=== PATIENT | male | born 1970 | race Caucasian/White ===

== ENCOUNTER 2018-02-16 18:54 | Emergency (ER) | payer MEDICAID ==
--- NOTE | 2018-02-16 19:38 | EDM.PDOC ---
ED HPI GENERAL MEDICAL PROBLEM - General Chief Complaint: Lower Extremity Injury/Pain Stated Complaint: LEFT FOOT PAIN, BROKE FOOT IN OCT Time Seen by Provider: 02/16/18 19:15 Source of Information: Reports: Patient History Limitations: Reports: No Limitations - History of Present Illness INITIAL COMMENTS - FREE TEXT/NARRATIVE: 47-year-old male who had surgery for what sounds like a fracture on the left foot December 22, was just given the green light to remove the walking boot recently and today he was ambulating without the boot when he turned his foot slightly and he thought he felt a crack and now has more pain. It looks fine. He just wants to make sure he didn't damage the surgery. It is still more sore than it was prior to the reinjury. No other complaints. Location: Reports: Lower Extremity, Left Worsens with: Reports: Other (Weightbearing) Left Feet Pain Score (Numeric/FACES): 4 - Related Data Allergies Allergy/AdvReac Type Severity Reaction Status Date / Time codeine Allergy Airway Verified 08/06/14 23:39 Tightness Home Meds: Home Meds Albuterol Sulfate [Proair Hfa] 1 - 2 puff IH Q4H PRN 08/06/14 [History] Albuterol [Proventil Neb Soln] 1 ampule IH TID PRN 08/06/14 [History] Canagliflozin [Invokana] 300 mg PO DAILY 08/06/14 [History] Doxazosin Mesylate [Cardura] 8 mg PO BEDTIME 08/06/14 [History] Hydrochlorothiazide 25 mg PO BEDTIME 08/06/14 [History] Insulin Aspart [NovoLOG] 150 units SQ BID 08/06/14 [History] Insulin Glarg,Human.Rec.Analog [Lantus Solostar] 100 unit SQ QPM 08/06/14 [ History] Lisinopril 40 mg PO DAILY 08/06/14 [History] Simvastatin 20 mg PO BEDTIME 08/06/14 [History] Varenicline [Chantix Dose Pack] 1 dose PO DAILY 08/06/14 [History] amLODIPine Besylate [Amlodipine Besylate] 10 mg PO DAILY 08/06/14 [History] predniSONE [Prednisone] 20 mg PO DAILY 08/06/14 [History] sitaGLIPtin Phos/Metformin HCl [Janumet 50-1,000 MG] 1 tab PO BID 08/06/14 [ History] Past Medical History HEENT History: Reports: Impaired Vision Cardiovascular History: Reports: Hypertension, Stents Respiratory History: Reports: Asthma, COPD, Sleep Apnea Neurological History: Reports: Head Trauma Psychiatric History: Reports: Anxiety, Depression Endocrine/Metabolic History: Reports: Diabetes, Type II - Infectious Disease History Infectious Disease History: Reports: Chicken Pox, Shingles - Past Surgical History Cardiovascular Surgical History: Reports: Coronary Artery Stent Musculoskeletal Surgical History: Reports: Other (See Below) Other Musculoskeletal Surgeries/Procedures:: left foot surgery Social & Family History - Tobacco Use Smoking Status *Q: Current Every Day Smoker Years of Tobacco use: 38 Packs/Tins Daily: 0.5 - Caffeine Use Caffeine Use: Reports: Soda - Recreational Drug Use Recreational Drug Use: Yes Drug Use in Last 12 Months: Yes Recreational Drug Type: Reports: Marijuana/Hashish Recreational Drug Use Frequency: Weekly Review of Systems - Review of Systems Review Of Systems: See Below Constitutional: Denies: Fever Respiratory: Denies: Shortness of Breath GI/Abdominal: Denies: Nausea, Vomiting Skin: Denies: Erythema (The wound itself is healing well, no erythema or swelling, no draining) Neurological: Denies: Paresthesia ED EXAM, GENERAL - Physical Exam Exam: See Below Exam Limited By: No Limitations General Appearance: Alert, No Apparent Distress Respiratory/Chest: No Respiratory Distress Extremities: Other (Exam is otherwise limited to the left foot. There is a well- healed surgical scar over the lateral foot near the base of the fifth metatarsal. There is no deformity but there is moderate tenderness to palpation , no crepitus) Neurological: Alert, Oriented Course - Vital Signs Last Recorded V/S: Last Vital Signs Temp 95.7 F 02/16/18 19:06 Pulse 93 02/16/18 19:06 Resp 18 02/16/18 19:06 BP 163/79 H 02/16/18 19:06 Pulse Ox 92 L 02/16/18 19:06 - Orders/Labs/Meds Orders: Active Orders 24 hr Category Date Time Status Foot Comp Min 3V Lt [CR] Stat Exams 02/16/18 19:15 Taken - Re-Assessments/Exams Free Text/Narrative Re-Assessment/Exam: 02/16/18 19:31 An x-ray of the left foot was obtained. 02/16/18 20:48 There was a slight opening of the fracture site of the fifth metatarsal on the x -ray, the edges of the bone appeared to be sclerosed and nonacute. I discussed this with the [facility] physician who compared a foot x-ray from a week ago and it sounds very similar. The patient was reassured and can recheck with orthopedics over the next several days if pain continues or he has other concerns. I think it's okay to increase activity as tolerated. Departure - Departure Time of Disposition: 19:45 Disposition: Home, Self-Care 01 Condition: Good Clinical Impression: Acute postoperative pain of left foot - Discharge Information Instructions: Foot Pain Referrals: Marii Hyman [employer] [Primary Care Provider] - Forms: ED Department Discharge Care Plan Goals: Avoid direct weightbearing until further instructions and advice from orthopedics. Recheck in the next 2-3 days if concerns. - My Orders Last 24 Hours: My Active Orders 02/16/18 19:15 Foot Comp Min 3V Lt [CR] Stat - Assessment/Plan Last 24 Hours: My Active Orders 02/16/18 19:15 Foot Comp Min 3V Lt [CR] Stat
--- NOTE | 2018-02-17 08:45 | CR ---
Foot Comp Min 3V Lt INDICATION: post op injury FINDINGS: Postoperative changes threaded screw fixation across the left fifth metatarsal. Hardware ap pears intact. Calcaneal spurs. Degenerative changes in the midfoot and MTP joint. Accessory navicular .
== END 2018-02-16 19:46 | disposition home or self-care (01) ==
LOC: JP.ED 18:54
DX: G89.18 Other acute postprocedural pain (principal); M79.672 Pain in left foot; J44.9 Chronic obstructive pulmonary disease, unspecified; E11.9 Type 2 diabetes mellitus without complications; F17.210 Nicotine dependence, cigarettes, uncomplicated; Z79.4 Long term (current) use of insulin; Z79.899 Other long term (current) drug therapy; Z88.5 Allergy status to narcotic agent; Z98.890 Other specified postprocedural states
CPT/HCPCS: 73630-26-LT; 73630-LT; 99284

== ENCOUNTER 2021-08-26 11:20 | Emergency (ER) | payer MEDICAID | END 2021-08-26 11:44 | disposition left against medical advice (07) | LOC: JP.ED 11:20 | DX: Z53.21 Procedure and treatment not carried out due to patient leaving prior to being seen by health care provider (principal) ==

== ENCOUNTER 2021-10-11 03:03 | Emergency (ER) | payer MEDICAID ==
[2021-10-11 04:19] LABS: CORONAVIRUS COVID-19 NAA NEGATIVE (NEGATIVE)
[2021-10-11] MEDS ORDERED: Levofloxacin 250 MG Tab PO ONE (04:28)
== END 2021-10-11 04:51 | disposition home or self-care (01) ==
LOC: JP.ED 03:03
DX: J44.0 Chronic obstructive pulmonary disease with (acute) lower respiratory infection (principal); J18.9 Pneumonia, unspecified organism; E66.2 Morbid (severe) obesity with alveolar hypoventilation; I10 Essential (primary) hypertension; E11.9 Type 2 diabetes mellitus without complications; Z68.44 Body mass index [BMI] 60.0-69.9, adult; Z88.8 Allergy status to other drugs, medicaments and biological substances; Z88.5 Allergy status to narcotic agent; Z91.013 Allergy to seafood; Z79.4 Long term (current) use of insulin; Z79.899 Other long term (current) drug therapy; Z20.822 Contact with and (suspected) exposure to COVID-19
CPT/HCPCS: 0241U; 36415; 36600; 71045; 80053; 82009; 82803; 85025; 99285; A9270

== ENCOUNTER 2021-10-17 08:05 | Emergency (ER) | payer MEDICAID | END 2021-10-17 13:28 | disposition home or self-care (01) | LOC: JP.ED 08:05 | DX: S80.01XA Contusion of right knee, initial encounter (principal); M17.11 Unilateral primary osteoarthritis, right knee; J44.9 Chronic obstructive pulmonary disease, unspecified; E11.9 Type 2 diabetes mellitus without complications; I10 Essential (primary) hypertension; Z88.5 Allergy status to narcotic agent; Z91.013 Allergy to seafood; Z79.899 Other long term (current) drug therapy; Z79.4 Long term (current) use of insulin; W22.09XA Striking against other stationary object, initial encounter | CPT/HCPCS: 36415; 73562-26-RT; 73562-RT; 73610-26-RT; 73610-RT; 80053; 82947; 83605; 85025; 99284-25 ==

== ENCOUNTER 2021-10-21 08:55 | Inpatient (IN) | payer MEDICAID ==
[2021-10-21] MEDS ORDERED: Metoclopramide 10 MG/2 ML SDV IVPUSH ONE (09:03)
[2021-10-21] MEDS ORDERED: Famotidine 20 MG/2 ML SDV IVPUSH ONE (09:03)
[2021-10-21] MEDS ORDERED: Aluminum Hydroxide/Magnesium Hydroxide/Simethicone Susp 30 ML Cup PO STA (09:04)
[2021-10-21] MEDS ORDERED: Lactated Ringers 1,000 ML IV SCH ×2 (09:15→10:30)
[2021-10-21] MEDS ORDERED: Pantoprazole 40 MG Vial IVPUSH SCH (09:15)
[2021-10-21 10:16] LABS: CORONAVIRUS COVID-19 NAA NEGATIVE (NEGATIVE)
[2021-10-21] MEDS ORDERED: Pantoprazole 80 MG in Sodium Chloride 0.9% 100 ML IV SCH (11:00)
[2021-10-21] MEDS ORDERED: Albuterol 0.083% 2.5 MG/3 ML Neb Soln NEB PRN (13:40)
[2021-10-21] MEDS ORDERED: Ondansetron 4 MG/2 ML SDV IV PRN (13:40)
[2021-10-21] MEDS ORDERED: 50% Dextrose in Water 50 ML Syringe IV PRN (13:40)
[2021-10-21] MEDS ORDERED: Glucose Gel 15 GM in 37.5 GM Tube PO PRN (13:40)
[2021-10-21] MEDS ORDERED: Sodium Chloride 0.9% 10 ML Syringe FLUSH PRN (13:40)
[2021-10-21] MEDS: Insulin Lispro 100 Unit/ML 3 ML KwikPen SUBCUT SCH ×3 (13:40→20:38)
[2021-10-21] MEDS ORDERED: Insulin Regular, Human 100 Units/ML 3 ML Vial SUBCUT PRN (14:01)
[2021-10-21] MEDS: oxyCODONE 5 MG Tab PO PRN ×2 (15:08→21:01)
[2021-10-21] MEDS: Nicotine 14 MG/24 Hr Patch TRDERM SCH (15:09)
[2021-10-21] MEDS: Sodium Chloride 0.9% 1,000 ML IV SCH (16:12)
[2021-10-21] MEDS: atorvaSTATin 20 MG Tab PO SCH (20:24)
[2021-10-21] MEDS: Carvedilol 12.5 MG Tab PO SCH (20:25)
[2021-10-21] MEDS: Amitriptyline 25 MG Tab PO SCH (20:26)
[2021-10-21] MEDS: Pantoprazole 80 MG in Sodium Chloride 0.9% 100 ML IV SCH (21:40)
[2021-10-22] MEDS: oxyCODONE 5 MG Tab PO PRN ×4 (00:49→16:41)
[2021-10-22] MEDS: Insulin Lispro 100 Unit/ML 3 ML KwikPen SUBCUT SCH ×4 (07:18→20:56)
[2021-10-22] MEDS: Pantoprazole 80 MG in Sodium Chloride 0.9% 100 ML IV SCH (07:20)
[2021-10-22] MEDS: Tiotropium Bromide 4 GM Inhalation Spray (2.5mcg/1 dose; 10 doses) INH SCH (07:25)
[2021-10-22] MEDS: Acetaminophen 325 MG Tab PO PRN ×2 (07:41→18:19)
[2021-10-22] MEDS ORDERED: Propofol 200 MG/20 ML SDV ONE (07:43)
[2021-10-22] MEDS ORDERED: Midazolam 1 MG/ML 2 ML SDV ONE (07:43)
[2021-10-22] MEDS ORDERED: fentaNYL 100 MCG/2 ML SDV ONE (07:43)
[2021-10-22] MEDS: Sodium Chloride 0.9% 1,000 ML IV SCH (08:07)
[2021-10-22] MEDS ORDERED: Insulin Regular, Human 100 Units/ML 3 ML Vial SUBCUT SCH (09:00)
[2021-10-22] MEDS: Nicotine 14 MG/24 Hr Patch TRDERM SCH (09:59)
[2021-10-22] MEDS: Lisinopril 20 MG Tab PO SCH (09:59)
[2021-10-22] MEDS: Carvedilol 12.5 MG Tab PO SCH ×2 (09:59→20:57)
[2021-10-22] MEDS: Liraglutide (rDNA Origin) 0.6 MG/0.1 ML 3 ML Pen SUBCUT SCH (10:04)
[2021-10-22] MEDS: Insulin Regular, Human 100 Units/ML 3 ML Vial SUBCUT SCH (10:30)
[2021-10-22] MEDS ORDERED: Polyethylene Glycol 3350 Powder 238 GM Bot PO ONE (14:00)
[2021-10-22] MEDS ORDERED: Bisacodyl 5 MG Tab PO ONE (14:00)
[2021-10-22] MEDS: Amitriptyline 25 MG Tab PO SCH (20:56)
[2021-10-22] MEDS: atorvaSTATin 20 MG Tab PO SCH (20:57)
[2021-10-23] MEDS: Tiotropium Bromide 4 GM Inhalation Spray (2.5mcg/1 dose; 10 doses) INH SCH (07:01)
[2021-10-23] MEDS: Insulin Lispro 100 Unit/ML 3 ML KwikPen SUBCUT SCH ×4 (08:04→21:11)
[2021-10-23] MEDS: Carvedilol 12.5 MG Tab PO SCH ×2 (08:10→21:12)
[2021-10-23] MEDS: Lisinopril 20 MG Tab PO SCH (08:12)
[2021-10-23] MEDS: Nicotine 14 MG/24 Hr Patch TRDERM SCH (08:14)
[2021-10-23] MEDS: Liraglutide (rDNA Origin) 0.6 MG/0.1 ML 3 ML Pen SUBCUT SCH (08:21)
[2021-10-23] MEDS: Insulin Regular, Human 100 Units/ML 3 ML Vial SUBCUT SCH (08:34)
[2021-10-23] MEDS: oxyCODONE 5 MG Tab PO PRN ×3 (08:51→21:21)
[2021-10-23] MEDS ORDERED: Bumetanide 1 MG/4 ML MDV IVPUSH ONE (09:40)
[2021-10-23] MEDS ORDERED: Sodium Chloride 0.9% 10 ML Syringe FLUSH ONE (10:27)
[2021-10-23] MEDS ORDERED: Iopamidol 612 MG/ML 100 ML Bottle IV PRN (10:27)
[2021-10-23] MEDS ORDERED: Sodium Chloride 0.9% 75 ML IV SCH (10:30)
[2021-10-23] MEDS: Diclofenac Sodium 1% Gel 100 GM Tube TOP SCH ×3 (11:07→21:22)
[2021-10-23] MEDS: [UNRECOGNIZED DRUG - OTHER] IARTIC ONE (16:36)
[2021-10-23] MEDS: Amitriptyline 25 MG Tab PO SCH (21:12)
[2021-10-23] MEDS: atorvaSTATin 20 MG Tab PO SCH (21:14)
[2021-10-24] MEDS: oxyCODONE 5 MG Tab PO PRN ×3 (02:56→20:10)
[2021-10-24] MEDS: Diclofenac Sodium 1% Gel 100 GM Tube TOP SCH ×4 (06:00→21:02)
[2021-10-24] MEDS: Tiotropium Bromide 4 GM Inhalation Spray (2.5mcg/1 dose; 10 doses) INH SCH (07:02)
[2021-10-24] MEDS: Insulin Lispro 100 Unit/ML 3 ML KwikPen SUBCUT SCH ×4 (08:18→20:04)
[2021-10-24] MEDS: Liraglutide (rDNA Origin) 0.6 MG/0.1 ML 3 ML Pen SUBCUT SCH (08:21)
[2021-10-24] MEDS: Nicotine 14 MG/24 Hr Patch TRDERM SCH (09:47)
[2021-10-24] MEDS: Lisinopril 20 MG Tab PO SCH (09:48)
[2021-10-24] MEDS: Carvedilol 12.5 MG Tab PO SCH ×2 (09:53→20:00)
[2021-10-24] MEDS: Insulin Regular, Human 100 Units/ML 3 ML Vial SUBCUT SCH (09:56)
[2021-10-24] MEDS ORDERED: Bisacodyl 5 MG Tab PO ONE ×2 (12:00→20:24)
[2021-10-24] MEDS ORDERED: Polyethylene Glycol 3350 Powder 238 GM Bot PO ONE (13:00)
[2021-10-24] MEDS: [UNRECOGNIZED DRUG - OTHER] IARTIC ONE (16:12)
[2021-10-24] MEDS: atorvaSTATin 20 MG Tab PO SCH (20:05)
[2021-10-24] MEDS: Amitriptyline 25 MG Tab PO SCH (20:05)
[2021-10-24] MEDS ORDERED: Polyethylene Glycol 3350 Powder 119 GM Bottle PO ONE (20:23)
[2021-10-24] MEDS ORDERED: Polyethylene Glycol 3350 Powder 238 GM Bot ONE (20:50)
[2021-10-25] MEDS: Diclofenac Sodium 1% Gel 100 GM Tube TOP SCH ×4 (06:20→21:56)
[2021-10-25] MEDS: Tiotropium Bromide 4 GM Inhalation Spray (2.5mcg/1 dose; 10 doses) INH SCH (07:20)
[2021-10-25] MEDS ORDERED: Propofol 200 MG/20 ML SDV ONE (08:06)
[2021-10-25] MEDS ORDERED: fentaNYL 100 MCG/2 ML SDV ONE (08:06)
[2021-10-25] MEDS ORDERED: Midazolam 1 MG/ML 2 ML SDV ONE (08:06)
[2021-10-25] MEDS: Insulin Lispro 100 Unit/ML 3 ML KwikPen SUBCUT SCH ×4 (08:25→20:33)
[2021-10-25] MEDS: Nicotine 14 MG/24 Hr Patch TRDERM SCH (08:30)
[2021-10-25] MEDS: Insulin Regular, Human 100 Units/ML 3 ML Vial SUBCUT SCH (10:40)
[2021-10-25] MEDS: Liraglutide (rDNA Origin) 0.6 MG/0.1 ML 3 ML Pen SUBCUT SCH (10:41)
[2021-10-25] MEDS: Carvedilol 12.5 MG Tab PO SCH ×2 (10:47→20:34)
[2021-10-25] MEDS: Lisinopril 20 MG Tab PO SCH (10:48)
[2021-10-25] MEDS: oxyCODONE 5 MG Tab PO PRN ×3 (10:52→21:56)
[2021-10-25] MEDS: Meloxicam 7.5 MG Tab PO SCH (13:00)
[2021-10-25] MEDS: Amitriptyline 25 MG Tab PO SCH (20:35)
[2021-10-25] MEDS: atorvaSTATin 20 MG Tab PO SCH (20:35)
[2021-10-25] MEDS: Acetaminophen 325 MG Tab PO PRN (21:56)
[2021-10-26] MEDS: oxyCODONE 5 MG Tab PO PRN ×4 (04:23→23:31)
[2021-10-26] MEDS: Diclofenac Sodium 1% Gel 100 GM Tube TOP SCH ×4 (05:52→21:25)
[2021-10-26] MEDS: Tiotropium Bromide 4 GM Inhalation Spray (2.5mcg/1 dose; 10 doses) INH SCH (07:02)
[2021-10-26] MEDS: Insulin Regular, Human 100 Units/ML 3 ML Vial SUBCUT SCH ×2 (07:38→09:09)
[2021-10-26] MEDS: Insulin Lispro 100 Unit/ML 3 ML KwikPen SUBCUT SCH ×4 (07:38→21:23)
[2021-10-26] MEDS: Nicotine 14 MG/24 Hr Patch TRDERM SCH (09:00)
[2021-10-26] MEDS: Meloxicam 7.5 MG Tab PO SCH (09:00)
[2021-10-26] MEDS: Liraglutide (rDNA Origin) 0.6 MG/0.1 ML 3 ML Pen SUBCUT SCH (09:03)
[2021-10-26] MEDS: Carvedilol 12.5 MG Tab PO SCH ×2 (09:08→20:07)
[2021-10-26] MEDS: Lisinopril 20 MG Tab PO SCH (09:09)
[2021-10-26] MEDS ORDERED: Bumetanide 1 MG/4 ML MDV IVPUSH ONE (10:30)
[2021-10-26] MEDS ORDERED: predniSONE 20 MG Tab PO ONE (10:30)
[2021-10-26] MEDS ORDERED: 50% Dextrose in Water 50 ML Syringe IVPUSH PRN ×2 (15:21→17:05)
[2021-10-26] MEDS ORDERED: Insulin Lispro 100 Unit/ML 3 ML KwikPen SUBCUT ONE ×2 (15:21→17:05)
[2021-10-26] MEDS ORDERED: Glucagon,Human Recombinant 1 MG Vial IM PRN ×2 (15:21→17:05)
[2021-10-26] MEDS: Acetaminophen 325 MG Tab PO PRN ×2 (19:36→23:31)
[2021-10-26] MEDS: atorvaSTATin 20 MG Tab PO SCH (20:05)
[2021-10-26] MEDS: Amitriptyline 25 MG Tab PO SCH (20:06)
[2021-10-26] MEDS: Albuterol 8 GM Inhaler INH PRN (20:12)
[2021-10-26] MEDS ORDERED: Insulin Lispro 100 Units/ML 3 ML Vial SUBCUT ONE (21:30)
[2021-10-27] MEDS: Tiotropium Bromide 4 GM Inhalation Spray (2.5mcg/1 dose; 10 doses) INH SCH (07:24)
[2021-10-27] MEDS: Diclofenac Sodium 1% Gel 100 GM Tube TOP SCH ×3 (08:25→17:11)
[2021-10-27] MEDS: Insulin Lispro 100 Unit/ML 3 ML KwikPen SUBCUT SCH ×4 (08:26→21:20)
[2021-10-27] MEDS: predniSONE 20 MG Tab PO SCH (08:27)
[2021-10-27] MEDS: Carvedilol 12.5 MG Tab PO SCH ×2 (08:27→20:08)
[2021-10-27] MEDS: Nicotine 14 MG/24 Hr Patch TRDERM SCH (08:28)
[2021-10-27] MEDS: Insulin Regular, Human 100 Units/ML 3 ML Vial SUBCUT SCH (08:30)
[2021-10-27] MEDS: Meloxicam 7.5 MG Tab PO SCH (08:31)
[2021-10-27] MEDS: Liraglutide (rDNA Origin) 0.6 MG/0.1 ML 3 ML Pen SUBCUT SCH (08:31)
[2021-10-27] MEDS: Acetaminophen 325 MG Tab PO PRN ×2 (12:17→20:06)
[2021-10-27] MEDS: oxyCODONE 5 MG Tab PO PRN ×2 (12:18→20:07)
[2021-10-27] MEDS: Albuterol 8 GM Inhaler INH PRN ×3 (14:27→17:44)
[2021-10-27] MEDS ORDERED: Insulin Lispro 100 Unit/ML 3 ML KwikPen SUBCUT ONE ×2 (16:49→21:17)
[2021-10-27] MEDS ORDERED: Glucagon,Human Recombinant 1 MG Vial IM PRN (16:49)
[2021-10-27] MEDS ORDERED: 50% Dextrose in Water 50 ML Syringe IVPUSH PRN (16:49)
[2021-10-27] MEDS: atorvaSTATin 20 MG Tab PO SCH (20:07)
[2021-10-27] MEDS: Amitriptyline 25 MG Tab PO SCH (20:08)
[2021-10-28] MEDS: Acetaminophen 325 MG Tab PO PRN ×2 (00:17→04:07)
[2021-10-28] MEDS: oxyCODONE 5 MG Tab PO PRN ×2 (00:18→06:29)
[2021-10-28] MEDS: Diclofenac Sodium 1% Gel 100 GM Tube TOP SCH ×2 (00:24→08:13)
[2021-10-28] MEDS ORDERED: Calcium Carbonate 500 MG Tab.Chew PO PRN ×2 (03:00→10:39)
[2021-10-28] MEDS: Tiotropium Bromide 4 GM Inhalation Spray (2.5mcg/1 dose; 10 doses) INH SCH (07:25)
[2021-10-28] MEDS: Insulin Lispro 100 Unit/ML 3 ML KwikPen SUBCUT SCH (08:14)
[2021-10-28] MEDS: predniSONE 20 MG Tab PO SCH (08:20)
[2021-10-28] MEDS: Carvedilol 12.5 MG Tab PO SCH (08:20)
[2021-10-28] MEDS: Nicotine 14 MG/24 Hr Patch TRDERM SCH (08:25)
[2021-10-28] MEDS: Insulin Regular, Human 100 Units/ML 3 ML Vial SUBCUT SCH (08:28)
[2021-10-28] MEDS: Meloxicam 7.5 MG Tab PO SCH (08:30)
[2021-10-28] MEDS: Liraglutide (rDNA Origin) 0.6 MG/0.1 ML 3 ML Pen SUBCUT SCH (08:31)
[2021-10-28] MEDS ORDERED: Albuterol 8 GM Inhaler INH PRN (10:19)
[2021-10-28] MEDS ORDERED: oxyCODONE 5 MG Tab PO PRN (10:19)
[2021-10-28] MEDS ORDERED: Insulin Lispro 100 Unit/ML 3 ML KwikPen SUBCUT SCH (11:00)
[2021-10-28] MEDS ORDERED: Dimethicone 20%/Zinc Oxide 25% 56 GM Spray Bottle TOP PRN (12:23)
== END 2021-10-28 13:15 | disposition home health service (06) | DRG 378 ==
LOC: JP.ED 08:55 → JP.ICU 10:50 → UNDOADMIN 10:50 → UNDODISIN 10-28 09:41
PROVIDERS: ADMIT Hospitalist; ATTEND Hospitalist
PROC: 0DB98ZX Excision of Duodenum, Via Natural or Artificial Opening Endoscopic, Diagnostic (ICD-10-PCS; 2021-10-22)
PROC: 0DJD8ZZ Inspection of Lower Intestinal Tract, Via Natural or Artificial Opening Endoscopic (ICD-10-PCS; principal; 2021-10-25)
DX: K92.2 Gastrointestinal hemorrhage, unspecified (principal); D62 Acute posthemorrhagic anemia; Z68.43 Body mass index [BMI] 50.0-59.9, adult; J44.0 Chronic obstructive pulmonary disease with (acute) lower respiratory infection; M17.11 Unilateral primary osteoarthritis, right knee; E66.01 Morbid (severe) obesity due to excess calories; I25.10 Atherosclerotic heart disease of native coronary artery without angina pectoris; G47.33 Obstructive sleep apnea (adult) (pediatric); E11.65 Type 2 diabetes mellitus with hyperglycemia; H54.7 Unspecified visual loss; I10 Essential (primary) hypertension; F41.9 Anxiety disorder, unspecified; F32.A Depression, unspecified; F17.210 Nicotine dependence, cigarettes, uncomplicated; Z99.89 Dependence on other enabling machines and devices; Z79.4 Long term (current) use of insulin; Z79.899 Other long term (current) drug therapy; Z79.52 Long term (current) use of systemic steroids; Z88.5 Allergy status to narcotic agent; Z88.8 Allergy status to other drugs, medicaments and biological substances; Z91.013 Allergy to seafood; Z95.5 Presence of coronary angioplasty implant and graft; Z95.1 Presence of aortocoronary bypass graft; Z86.19 Personal history of other infectious and parasitic diseases; Z20.822 Contact with and (suspected) exposure to COVID-19
CPT/HCPCS: 0241U; 36415; 74177; 74177-26; 80048; 80053; 81001; 82947; 85018; 85025; 85027; 86850; 86900; 86901; 86920; 86922; 88305; 93971-26; 93971-RT; 94640; 96374; 96375; 97110-GP; 97116-GP; 97163-GP; 97530-GP; 99285; 99285-25; A9270-GY; C9113; J1815; J1815-GY; J2250; J2704; J2765; J3010; J3490; J7030; J7120; J7325; J7512; Q9967

== ENCOUNTER 2023-02-16 23:41 | Emergency (ER) | payer MEDICAID ==
[2023-02-16] MEDS ORDERED: Sodium Chloride 0.9% 10 ML Syringe FLUSH PRN (23:42)
[2023-02-16] MEDS ORDERED: methylPREDNISolone Sodium Succinate 125 MG/2 ML SDV IVPUSH ONE (23:44)
[2023-02-16] MEDS ORDERED: Albuterol/Ipratropium 3.0-0.5 MG/3 ML Neb Soln NEB ONE (23:44)
[2023-02-17 00:19] LABS: BASOPHILS ABSOLUTE AUTO 0.11 K/uL (0.00-0.10); EOSINOPHILS ABSOLUTE AUTO 0.29 K/uL (0.00-0.40); EOSINOPHILS PERCENT AUTO 2.5 % (0.0-5.4); HEMATOCRIT 45.3 % (38.4-49.7); HEMOGLOBIN 14.5 g/dL (12.9-16.9); IMMATURE GRAN ABSOLUTE AUTO 0.09 K/uL (0.00-0.23); IMMATURE GRAN PERCENT AUTO 0.8 % (0.0-0.7); LYMPHOCYTES ABSOLUTE AUTO 1.78 K/uL (0.8-3.3); LYMPHOCYTES PERCENT AUTO 15.4 % (11.4-47.7); MEAN CORPUSCULAR HEMOGLOBIN 30.6 pg (31.6-35.5); MEAN CORPUSCULAR VOLUME 95.6 fL (81.4-99.0); MONOCYTES ABSOLUTE AUTO 0.95 K/uL (0.20-0.90); MONOCYTES PERCENT AUTO 8.2 % (3.3-12.6); NEUTROPHILS ABSOLUTE AUTO 8.34 K/uL (1.0-7.6); NEUTROPHILS PERCENT AUTO 72.1 % (40.0-78.1); PLATELET COUNT,PLT 160 K/uL (130-375); RED BLOOD CELL COUNT 4.74 M/uL (4.14-5.76); WHITE BLOOD CELL COUNT,WBC 11.6 K/uL (3.2-11.0)
[2023-02-17 00:28] LABS: BASE EXCESS ARTERIAL 9.4 mm/L; BICARBONATE,ARTERIAL 38.3 mmol/L (22.0-26.0); METHEMOGLOBIN 0.7 %; O2 SATURATION ARTERIAL 91.3 % (95.0-98.0); OXYHEMOGLOBIN 84.3 %; PO2 ARTERIAL 65.7 mmHg (75.0-100.0); TOTAL HEMOGLOBIN 14.8 g/dL (13.5-18.0)
[2023-02-17 00:52] LABS: LACTIC ACID 0.9 mmol/L (0.4-2.0)
[2023-02-17 00:55] LABS: A/G RATIO 0.6 (1.2-2.2); ALANINE AMINOTRANSFERASE,ALT 26 U/L (12-78); ALBUMIN 3.1 g/dL (3.4-5.0); ALKALINE PHOSPHATASE 101 U/L (46-116); ASPARTATE AMNIOTRANSFERASE,AST 22 U/L (15-37); BILIRUBIN TOTAL 0.4 mg/dL (0.2-1.0); BLOOD UREA NITROGEN,BUN 23 mg/dL (7-18); CALCIUM 8.7 mg/dL (8.5-10.1); CARBON DIOXIDE,CO2 36 mmol/L (21-32); CHLORIDE,CL 98 mmol/L (100-108); CREATININE 0.7 mg/dL (0.8-1.3); ESTIMATED GFR 110 mL/min (>60); GLUCOSE RANDOM 110 mg/dL (74-106); POTASSIUM,K 3.8 mmol/L (3.6-5.2); PRO B-TYPE NATRIUR PEPT,BNPPRO 117 pg/mL (5-125); PROTEIN TOTAL,TP 8.3 g/dL (6.4-8.2); SODIUM,NA 139 mmol/L (140-148); TROPONIN I HIGH SENSITIVITY 14.5 pg/mL (<=60.3)
[2023-02-17 00:59] LABS: ANION GAP 8.8 mmol/L (5.0-14.0)
== END 2023-02-17 02:43 ==
LOC: JP.ED 23:41
DX: I11.0 Hypertensive heart disease with heart failure (principal); I50.9 Heart failure, unspecified; E11.59 Type 2 diabetes mellitus with other circulatory complications; J44.9 Chronic obstructive pulmonary disease, unspecified; E66.01 Morbid (severe) obesity due to excess calories; E11.9 Type 2 diabetes mellitus without complications; F17.210 Nicotine dependence, cigarettes, uncomplicated; Z88.5 Allergy status to narcotic agent; Z88.8 Allergy status to other drugs, medicaments and biological substances; Z91.013 Allergy to seafood; Z95.5 Presence of coronary angioplasty implant and graft; Z79.51 Long term (current) use of inhaled steroids; Z79.4 Long term (current) use of insulin; Z79.82 Long term (current) use of aspirin; Z79.899 Other long term (current) drug therapy; Z20.822 Contact with and (suspected) exposure to COVID-19; Z68.43 Body mass index [BMI] 50.0-59.9, adult
CPT/HCPCS: 36415; 36600; 71045; 80053; 82803; 83605; 83880; 84145; 84484; 85025; 87635; 93005; 94640; 96374; 99285; J2930; J3490; J7620; U0002

== ENCOUNTER 2024-04-16 11:55 | Emergency (ER) | payer MEDICAID ==
[2024-04-16] MEDS ORDERED: Bacitracin Oint 1 GM U/D Packet ONE (12:56)
[2024-04-16] MEDS ORDERED: Acetaminophen/HYDROcodone 325-10 MG Tab ONE (12:56)
[2024-04-16] MEDS: Bacitracin Oint 1 GM U/D Packet TOP ONE (13:00)
[2024-04-16] MEDS: Acetaminophen/HYDROcodone 325-10 MG Tab PO ONE (13:00)
== END 2024-04-16 13:25 | disposition home or self-care (01) ==
LOC: JP.ED 11:55
DX: T25.221A Burn of second degree of right foot, initial encounter (principal); J44.9 Chronic obstructive pulmonary disease, unspecified; X08.8XXA Exposure to other specified smoke, fire and flames, initial encounter; Y93.89 Activity, other specified
CPT/HCPCS: 16020; 99283; A9270

== ENCOUNTER 2024-04-18 11:15 | Emergency (ER) | payer MEDICAID ==
[2024-04-18] MEDS: HYDROmorphone 1 MG/ML Syringe IM ONE (11:37)
[2024-04-18] MEDS: Bacitracin Oint 1 GM U/D Packet TOP ONE (11:40)
[2024-04-18] MEDS: Lidocaine 1% 5 ML VIAL INJECT ONE (11:40)
[2024-04-18 12:00] LABS: BASOPHILS ABSOLUTE AUTO 0.07 K/uL (0.00-0.10); BASOPHILS PERCENT AUTO 0.6 % (0.1-1.3); EOSINOPHILS ABSOLUTE AUTO 0.12 K/uL (0.00-0.40); HEMATOCRIT 40.8 % (38.4-49.7); HEMOGLOBIN 12.8 g/dL (12.9-16.9); IMMATURE GRAN ABSOLUTE AUTO 0.06 K/uL (0.00-0.23); IMMATURE GRAN PERCENT AUTO 0.5 % (0.0-0.7); LYMPHOCYTES ABSOLUTE AUTO 1.23 K/uL (0.8-3.3); LYMPHOCYTES PERCENT AUTO 10.2 % (11.4-47.7); MEAN CORPUSCULAR HEMOGLOBIN 31.2 pg (31.6-35.5); MEAN CORPUSCULAR HGB CONC 31.4 g/dL (31.6-35.5); MEAN CORPUSCULAR VOLUME 99.5 fL (81.4-99.0); MONOCYTES ABSOLUTE AUTO 0.82 K/uL (0.20-0.90); MONOCYTES PERCENT AUTO 6.8 % (3.3-12.6); NEUTROPHILS ABSOLUTE AUTO 9.71 K/uL (1.0-7.6); NEUTROPHILS PERCENT AUTO 80.9 % (40.0-78.1); PLATELET COUNT,PLT 142 K/uL (130-375)
[2024-04-18 12:09] LABS: ANION GAP 5.9 mmol/L (5.0-14.0); CALCIUM 8.9 mg/dL (8.5-10.1); CREATININE 0.8 mg/dL (0.8-1.3); EST CRCL DRUG DOSING (CG) 114.51 mL/min; POTASSIUM,K 4.9 mmol/L (3.6-5.2)
[2024-04-18 13:33] LABS: BICARBONATE,ARTERIAL 44.9 mmol/L (22.0-26.0); CARBOXYHEMOGLOBIN 4.7 % (0.0-1.6); O2 SATURATION ARTERIAL 91.2 % (95.0-98.0); PO2 ARTERIAL 66.6 mmHg (75.0-100.0)
[2024-04-18 13:50] LABS: PCO2 ARTERIAL 98.3 mmHg (35.0-42.0)
[2024-04-18 15:12] LABS: A/G RATIO 0.7 (1.2-2.2); ALBUMIN 3.3 g/dL (3.4-5.0); BILIRUBIN DIRECT 0.23 mg/dL (0.0-0.2); BILIRUBIN INDIRECT 0.37; BILIRUBIN TOTAL 0.6 mg/dL (0.2-1.0); TROPONIN I HIGH SENSITIVITY 14.4 pg/mL (<=60.3)
[2024-04-18 15:21] LABS: BASE EXCESS ARTERIAL 14.5 mm/L; BICARBONATE,ARTERIAL 45.6 mmol/L (22.0-26.0); CARBOXYHEMOGLOBIN 4.3 % (0.0-1.6); METHEMOGLOBIN 0.7 %; OXYHEMOGLOBIN 77.9 %; PO2 ARTERIAL 51.6 mmHg (75.0-100.0); TOTAL HEMOGLOBIN 13.2 g/dL (13.5-18.0)
[2024-04-18 15:23] LABS: PCO2 ARTERIAL 99.6 mmHg (35.0-42.0)
[2024-04-18] MEDS: propofoL 100 ML IV SCH (16:10)
[2024-04-18] MEDS: Rocuronium 50 MG/5 ML Vial IVPUSH ONE ×2 (16:30→17:40)
[2024-04-18] MEDS: Rocuronium 50 MG/5 ML Vial ONE (16:52)
[2024-04-18] MEDS ORDERED: Succinylcholine 200 MG/10 ML MDV ONE (17:00)
[2024-04-18] MEDS ORDERED: Propofol 200 MG/20 ML SDV ONE (17:00)
[2024-04-18 17:37] LABS: BICARBONATE,ARTERIAL 42.2 mmol/L (22.0-26.0); METHEMOGLOBIN 0.8 %; O2 SATURATION ARTERIAL 80.9 % (95.0-98.0); PCO2 ARTERIAL 65.4 mmHg (35.0-42.0); TOTAL HEMOGLOBIN 12.3 g/dL (13.5-18.0)
[2024-04-18 17:39] LABS: PO2 ARTERIAL 42.8 mmHg (75.0-100.0)
== END 2024-04-18 17:50 ==
LOC: JP.ED 11:15
DX: J96.02 Acute respiratory failure with hypercapnia (principal); I10 Essential (primary) hypertension; I25.10 Atherosclerotic heart disease of native coronary artery without angina pectoris; J45.909 Unspecified asthma, uncomplicated; E11.9 Type 2 diabetes mellitus without complications; Z79.899 Other long term (current) drug therapy; Z79.4 Long term (current) use of insulin; Z88.8 Allergy status to other drugs, medicaments and biological substances; Z91.013 Allergy to seafood
CPT/HCPCS: 16025; 31500; 36410; 36415; 36600; 43752; 71045; 71045-26; 80048; 80076; 82803; 83605; 83880; 84145; 84484; 85025; 87040; 93005; 93010; 96372; 99285; 99285-25; J0330; J1170; J2704; J3490